=== PATIENT | female | born 1965 | race Caucasian/White ===

== ENCOUNTER 2021-12-07 08:57 | Emergency (ER) | payer BC, OTHER ==
[2021-12-07] MEDS ORDERED: Orphenadrine 60 MG/2 ML Inj IM ONE (09:34)
[2021-12-07] MEDS ORDERED: Ketorolac 60 MG/2 ML SDV IM ONE (09:34)
== END 2021-12-07 10:30 | disposition home or self-care (01) ==
LOC: CC.ED 08:57
DX: M25.511 Pain in right shoulder (principal); Z88.0 Allergy status to penicillin
CPT/HCPCS: 73060; 96372; 99283; J1885; J2360